=== PATIENT | female | born 1965 | race Hispanic/Latino ===

== ENCOUNTER 2019-05-10 14:16 | Emergency (ER) | payer OTHER ==
[2019-05-10] MEDS ORDERED: IBUPROFEN 800 MG TAB ONE (14:42)
[2019-05-10 15:05] LABS: RAPID GROUP A STREP NEGATIVE (NEGATIVE)
[2019-05-10] MEDS ORDERED: ONDANSETRON ODT 4 MG TAB ONE (15:27)
[2019-05-10 15:43] LABS: APPEARANCE,URINE Clear (CLEAR); BILIRUBIN,URINE Negative (NEGATIVE); COLOR,URINE Yellow (YELLOW); GLUCOSE, URINE (UA) Negative (NEGATIVE); KETONES,URINE Negative (NEGATIVE); LEUKOCYTE ESTERASE ,URINE Large (NEGATIVE); NITRATE,URINE Positive (NEGATIVE); OCCULT BLOOD,URINE Negative (NEGATIVE); PROTEIN,URINE Negative (NEGATIVE); UROBILINOGEN,URINE 0.2 mg/dL (0.2-1.0)
[2019-05-10 16:10] LABS: BACTERIA,URINE Many /HPF (None Seen); MUCUS,URINE Few LPF (None Seen); RBC,URINE 0-1 /HPF (0-1)
== END 2019-05-10 16:27 | disposition home or self-care (01) ==
LOC: EDH 14:16
DX: N39.0 Urinary tract infection, site not specified (principal); J09.X2 Influenza due to identified novel influenza A virus with other respiratory manifestations
CPT/HCPCS: 81001; 87077; 87088; 87186; 87804; 87880

== ENCOUNTER 2019-07-01 21:08 | Emergency (ER) | payer OTHER ==
[2019-07-01] MEDS ORDERED: ACETAMINOPHEN EXTRA STRENGTH 500 MG TABLET ONE (21:23)
[2019-07-01] MEDS ORDERED: ONDANSETRON ODT 4 MG TAB ONE (21:23)
[2019-07-01 21:56] LABS: BASOPHILS % (AUTO) 0.2 % (0.0-5.0); HEMATOCRIT 46.4 % (36-48); LYMPHOCYTES % (AUTO) 18.3 % (21.0-51.0); MEAN CORPUSCULAR HEMOGLOBIN 29.6 pg (27.0-33.0); MEAN CORPUSCULAR HGB CONC 33.6 g/dL (32.0-36.0); MONOCYTES % (AUTO) 7.7 % (3.0-13.0); NEUTROPHILS % (AUTO) 73.3 % (40.0-77.0); PLATELET COUNT (AUTO) 178 K/uL (130-400); RED BLOOD CELL COUNT(AUTO) 5.27 MIL/uL (4.00-5.50); RED CELL DISTRIBUTION WIDTH 13.3 % (11.0-15.5); WHITE BLOOD COUNT (AUTO) 9.4 K/uL (4.8-10.8)
[2019-07-01] MEDS ORDERED: ASPIRIN 325 MG TABLET ONE (22:02)
[2019-07-01 22:11] LABS: CREATININE 0.8 mg/dL (0.5-1.5); POTASSIUM 3.4 mmol/L (3.5-5.1)
[2019-07-01 22:16] LABS: ALBUMIN 3.5 g/dL (3.5-5.0); BILIRUBIN,TOTAL 0.4 mg/dL (0.2-1.0); TOTAL PROTEIN, SERUM 7.8 g/dL (6.0-8.3)
[2019-07-01 23:02] LABS: CRP QUANTITATIVE 96.2 mg/L (0.00-9.0)
== END 2019-07-01 23:41 | disposition home or self-care (01) ==
LOC: EDH 21:08
DX: R50.9 Fever, unspecified (principal); R06.00 Dyspnea, unspecified; Z20.89 Contact with and (suspected) exposure to other communicable diseases; Z98.890 Other specified postprocedural states
CPT/HCPCS: 36415; 80053; 82550; 82728; 83615; 84145; 84484; 85025; 86140; 87633; 87804; 93005